=== PATIENT | female | born 1960 | race Caucasian/White ===

== ENCOUNTER → 2018-09-10 09:00 | Outpatient (CLI) | payer OTHER, SELFPAY ==
[2018-09-10 09:39] LABS: ALB/GLOB Ratio 1.1 RATIO (0.9-2.4); AST(SGOT) 14 U/L (15-37); Alanine Aminotransfer ALT/SGPT 19 U/L (13-56); Albumin, Serum 3.7 g/dL (3.2-5.0); Alkaline Phosphatase 63 U/L (45-117); Anion Gap 7 (5-15); BUN 13 mg/dL (7-18); Calcium,Total 8.6 mg/dL (8.5-10.1); Chloride 103 mmol/L (98-107); Cholesterol 216 mg/dL (200); Creatinine, Serum 0.72 mg/dL (0.55-1.02); EST Glomerular Filtration Rate 88 mL/min (>60); Est Glom Filt Rate - Afr Amer 107 mL/min (>60); Globulin 3.3 g/dL (2.2-4.2); Glucose 93 mg/dL (74-106); High Density Lipoprotein 86 mg/dL; Potassium 4.2 mmol/L (3.5-5.1); Sodium Level 140 mmol/L (136-145); Triglycerides 95 mg/dL; Very Low Density Lipoprotein 19 mg/dL (5-40)
== END ==
PROVIDERS: Family Provider Family Medicine; PCP Family Medicine; Visit Provider Family Medicine
DX: I10 Essential (primary) hypertension (principal); E78.00 Pure hypercholesterolemia, unspecified
CPT/HCPCS: 36415; 80053; 80061

== ENCOUNTER → 2018-10-09 15:11 | Outpatient (CLI) | payer OTHER, SELFPAY ==
[2018-09-03 11:22] VITALS: BMI 21.7
--- NOTE | 2018-10-09 15:14 | BI_ITS ---
MAMMOGRAPHY - BILATERAL SCREENING REASON FOR EXAM: Female, 58 years old. Routine annual screening examination. PERTINENT HISTORY: Non-contributory. TECHNIQUE: Digital bilateral breast adiel (3D mammographic acquisition) in the CC and MLO projections. 2-D mediolateral oblique (MLO) and craniocaudad (CC) views of both breasts were obtained. CAD: Full Field Digital Mammography with Computer Added Detection was performed. COMPARISON: Comparison is made with prior outside examination dated September 11, 2017. FINDINGS: Breast Composition: The breasts are extremely dense, which lowers the sensitivity of mammography. There are no dominant masses or suspicious calcifications. No other significant abnormalities are identified. There has been no significant change since the prior study. BI/SCREENING MAMM (CAD), BILAT IMPRESSION: Stable bilateral screening mammogram. Yearly follow-up mammogram recommended. (A) ASSESSMENT CATEGORY: BIRADS Category 1: Negative. A letter regarding these results will be sent to the patient by the facility within 30 days. Approximately 10% of breast cancers are not detected by mammography. A normal mammogram should not delay biopsy of a clinically suspicious abnormality. [id number] Electronically Signed: Hollis Bryan MD at 8:22 EST Tel [phone], Service support ,
== END ==
PROVIDERS: Family Provider Family Medicine; PCP Family Medicine; Referring Provider Family Medicine; Visit Provider Family Medicine
DX: Z12.31 Encounter for screening mammogram for malignant neoplasm of breast (principal)
CPT/HCPCS: 77063; 77067

== ENCOUNTER → 2019-09-16 11:57 | Outpatient (CLI) | payer OTHER, SELFPAY ==
[2019-09-16 11:37] VITALS: BMI 21.7
[2019-09-16 12:46] LABS: ALB/GLOB Ratio 1.3 RATIO (0.9-2.4); AST(SGOT) 15 U/L (15-37); Alanine Aminotransfer ALT/SGPT 19 U/L (13-56); Albumin, Serum 3.9 g/dL (3.2-5.0); Alkaline Phosphatase 64 U/L (45-117); Anion Gap 4 (5-15); BUN 14 mg/dL (7-18); BUN/Creat Ratio 21.5 RATIO (10-20); Calcium,Total 8.6 mg/dL (8.5-10.1); Chloride 107 mmol/L (98-107); Cholesterol 221 mg/dL (200); Creatinine, Serum 0.65 mg/dL (0.55-1.02); EST Glomerular Filtration Rate 99 mL/min (>60); Est Glom Filt Rate - Afr Amer 120 mL/min (>60); Glucose 94 mg/dL (74-106); High Density Lipoprotein 92 mg/dL; Potassium 4.1 mmol/L (3.5-5.1); Protein, Total 6.9 g/dL (6.4-8.2); Sodium Level 140 mmol/L (136-145); Triglycerides 67 mg/dL; Very Low Density Lipoprotein 13 mg/dL (5-40)
== END ==
PROVIDERS: Family Provider Family Medicine; PCP Family Medicine; Visit Provider Family Medicine
DX: I10 Essential (primary) hypertension (principal); E78.00 Pure hypercholesterolemia, unspecified
CPT/HCPCS: 36415; 80053; 80061

== ENCOUNTER → 2019-10-14 10:13 | Outpatient (CLI) | payer OTHER, SELFPAY ==
[2019-09-16 11:37] VITALS: BMI 21.7
--- NOTE | 2019-10-14 10:14 | BI_ITS ---
MAMMOGRAPHY - BILATERAL SCREENING 3-D TOMOSYNTHESIS REASON FOR EXAM: Female, 59 years old. Routine annual screening mammogram. PERTINENT HISTORY: No significant family history. TECHNIQUE: 2-D mammograms and 3-D Tomosynthesis of the breast (s) were performed. CAD was performed. COMPARISON: October 09, 2018 FINDINGS: The breast composition is heterogeneously dense that can obscure small breast masses. Scattered benign calcifications are seen. No dense spiculated masses or suspicious microcalcifications are identified. No architectural distortion is identified. There is no skin thickening or retraction. There has been no significant change since the prior study. BI/SCREEN MAMM (CAD) W/MAME BILAT IMPRESSION: No mammographic signs of malignancy. Routine yearly mammograms recommended. ASSESSMENT CATEGORY: BIRADS Category 2: Benign. A letter regarding these results will be sent to the patient by the facility within 30 days. FOLLOW UP RECOMMENDATION: Yearly follow up mammogram recommended. (A) Approximately 10% of breast cancers are not detected by mammography. A normal mammogram should not delay biopsy of a clinically suspicious abnormality. Electronically Signed: Thanh Clark MD at 11:28 EST , Service support ,
== END ==
PROVIDERS: Family Provider Family Medicine; PCP Family Medicine; Referring Provider Family Medicine; Visit Provider Family Medicine
DX: Z12.31 Encounter for screening mammogram for malignant neoplasm of breast (principal)
CPT/HCPCS: 77063; 77067

== ENCOUNTER → 2020-09-23 16:24 | Outpatient (CLI) | payer OTHER, SELFPAY ==
[2020-09-23 15:51] VITALS: BMI 22.1
[2020-09-23 17:37] LABS: ALB/GLOB Ratio 1.3 RATIO (0.9-2.4); AST(SGOT) 19 U/L (15-37); Alanine Aminotransfer ALT/SGPT 25 U/L (13-56); Alkaline Phosphatase 73 U/L (45-117); Anion Gap 8 (5-15); BUN 16 mg/dL (7-18); BUN/Creat Ratio 26.9 RATIO (10-20); Calcium,Total 8.8 mg/dL (8.5-10.1); Chloride 106 mmol/L (98-107); Cholesterol 220 mg/dL (200); Creatinine, Serum 0.59 mg/dL (0.55-1.02); EST Glomerular Filtration Rate 110 mL/min (>60); Est Glom Filt Rate - Afr Amer 133 mL/min (>60); Glucose 82 mg/dL (74-106); High Density Lipoprotein 99 mg/dL; Potassium 3.8 mmol/L (3.5-5.1); Sodium Level 143 mmol/L (136-145); Triglycerides 139 mg/dL; Very Low Density Lipoprotein 28 mg/dL (5-40)
== END ==
PROVIDERS: PCP Family Medicine; Referring Provider Family Medicine; Visit Provider Family Medicine
DX: I10 Essential (primary) hypertension (principal); E78.00 Pure hypercholesterolemia, unspecified
CPT/HCPCS: 36415; 80053; 80061

== ENCOUNTER → 2020-10-12 09:04 | Outpatient (CLI) | payer OTHER, SELFPAY ==
[2020-09-23 15:51] VITALS: BMI 22.1
--- NOTE | 2020-10-12 09:09 | BD_ITS ---
STUDY: DUAL ENERGY X-RAY ABSORPTIOMETRY / DXA REASON FOR EXAM: Female, 60 years old. Age of shakira 54. Pat is 121# and 62.5 and quot; a loss of .% and quot; per pat. Takes a multi-vit. Exercises moderately. Grandmother has osteo. TECHNIQUE: Bone Mineral Density (BMD) measurements of lumbar spine and bilateral hips were obtained. COMPARISON: None. FINDINGS: Lumbar Spine (L1-L4): g/cm2 (0.930) / T-score (-2.1) / Z-score (-0.9) Findings are suggestive of osteopenia with a high fracture risk. Left Femur Total: g/cm2 (0.787) / T-score (-1.8) / Z-score (-0.9) Left Femoral Neck: g/cm2 (0.768) / T-score (-1.9) / Z-score (-0.7) Right Femur Total: g/cm2 (0.808) / T-score (-1.6) / Z-score (-0.7) Right Femoral Neck: g/cm2 (0.822) / T-score (-1.6) / Z-score (0.4) BD/Dexa Bone Density Study IMPRESSION: The patient is considered osteopenic as outlined below according to World [employer] Organization (WHO) criteria with a high fracture risk. Reference Information: The T-score is the number of standard deviations above or below the standard which is normal for young adults at their peak bone mineral density. The World Health Organization (WHO) interprets the T-scores as follows: Above -1 Normal bone density Between -1 and -2.5 Osteopenia Equal to / or below -2.5 Osteoporosis As a practical clinical guideline, osteopenia may be graded as follows: Mild -1 through -1.5 Moderate -1.6 through -2.0 Severe -2.1 through -2.4 The Z-score is the number of standard deviations above or below age-matched controls. A Z-score of less than -1.5 would be considered abnormal. References: 1. NIH Osteoporosis and Related Bone Diseases www osteo.org 2. International Society for Clinical Densitometry www iscd.org 3. National Osteoporosis Foundation www nof.org Electronically Signed: Hollis Bryan, at 16:16 EST , Service support ,
== END ==
PROVIDERS: PCP Family Medicine; Referring Provider Family Medicine; Visit Provider Family Medicine
DX: M81.0 Age-related osteoporosis without current pathological fracture (principal)
CPT/HCPCS: 77080

== ENCOUNTER → 2020-11-05 10:52 | Outpatient (CLI) | payer OTHER, SELFPAY ==
[2020-09-23 15:51] VITALS: BMI 22.1
--- NOTE | 2020-11-05 10:54 | BI_ITS ---
MAMMOGRAPHY - BILATERAL SCREENING REASON FOR EXAM: Female, 60 years old. Routine annual screening examination. PERTINENT HISTORY: Non-contributory. TECHNIQUE: Digital bilateral breast mame (3D mammographic acquisition) in the CC and MLO projections. 2-D mediolateral oblique (MLO) and craniocaudad (CC) views of both breasts were obtained. CAD: Full Field Digital Mammography with Computer Added Detection was performed. COMPARISON: Comparison is made with prior study dated 10/14/2019 and 10/09/2018. FINDINGS: Breast Composition: The breasts are extremely dense, which lowers the sensitivity of mammography. There are no dominant masses or suspicious calcifications. No other significant abnormalities are identified. There has been no significant change since the prior study. BI/SCREEN MAMM (CAD) W/MAME BILAT IMPRESSION: Stable bilateral screening mammogram. Yearly follow-up mammogram recommended. (A) ASSESSMENT CATEGORY: BIRADS Category 1: Negative. A letter regarding these results will be sent to the patient by the facility within 30 days. Approximately 10% of breast cancers are not detected by mammography. A normal mammogram should not delay biopsy of a clinically suspicious abnormality. [id number] Electronically Signed: Hollis Bryan, at 12:19 EST , Service support ,
== END ==
PROVIDERS: PCP Family Medicine; Referring Provider Family Medicine; Visit Provider Family Medicine
DX: Z12.31 Encounter for screening mammogram for malignant neoplasm of breast (principal)
CPT/HCPCS: 77063; 77067

== ENCOUNTER → 2021-10-20 15:01 | Outpatient (CLI) | payer OTHER, SELFPAY ==
[2021-10-20 17:43] LABS: ALB/GLOB Ratio 1.2 RATIO (0.9-2.4); AST(SGOT) 21 U/L (15-37); Alanine Aminotransfer ALT/SGPT 27 U/L (13-56); Albumin, Serum 3.9 g/dL (3.2-5.0); Alkaline Phosphatase 67 U/L (45-117); Anion Gap 6 (5-15); BUN 13 mg/dL (7-18); BUN/Creat Ratio 20.9 RATIO (10-20); Calcium,Total 8.6 mg/dL (8.5-10.1); Chloride 105 mmol/L (98-107); Cholesterol 251 mg/dL (200); Creatinine, Serum 0.62 mg/dL (0.55-1.02); EST Glomerular Filtration Rate 104 mL/min (>60); Est Glom Filt Rate - Afr Amer 126 mL/min (>60); Globulin 3.2 g/dL (2.2-4.2); Glucose 82 mg/dL (74-106); High Density Lipoprotein 99 mg/dL; Protein, Total 7.1 g/dL (6.4-8.2); Sodium Level 140 mmol/L (136-145); Triglycerides 84 mg/dL; Very Low Density Lipoprotein 17 mg/dL (5-40)
== END ==
PROVIDERS: PCP Family Medicine; Referring Provider Family Medicine; Visit Provider Family Medicine
DX: I10 Essential (primary) hypertension (principal)
CPT/HCPCS: 36415; 80053; 80061

== ENCOUNTER 2021-11-21 13:11 | Outpatient (CLI) | payer OTHER, SELFPAY ==
--- NOTE | 2021-11-21 13:14 | BI_ITS ---
MAMMOGRAPHY - BILATERAL SCREENING REASON FOR EXAM: Female, 61 years old. Routine annual screening examination. PERTINENT HISTORY: Non-contributory. TECHNIQUE: Digital bilateral breast mame (3D mammographic acquisition) in the CC and MLO projections. 2-D mediolateral oblique (MLO) and craniocaudad (CC) views of both breasts were obtained. CAD: Full Field Digital Mammography with Computer Added Detection was performed. COMPARISON: Comparison is made with prior examination dated 11/05/2020 and 10/14/2019. FINDINGS: Breast Composition: The breasts are extremely dense, which lowers the sensitivity of mammography. There are no dominant masses or suspicious calcifications. No other significant abnormalities are identified. There has been no significant change since the prior study. BI/SCRN MAMM (CAD)W/MAME BILAT IMPRESSION: Stable bilateral screening mammogram. Yearly follow-up mammogram recommended. (A) ASSESSMENT CATEGORY: BIRADS Category 1: Negative. A letter regarding these results will be sent to the patient by the facility within 30 days. Approximately 10% of breast cancers are not detected by mammography. A normal mammogram should not delay biopsy of a clinically suspicious abnormality. [id number] Electronically Signed: Hollis Bryan MD at 14:06 EST , Service support ,
== END 2021-11-21 23:59 | disposition short-term general hospital (02) ==
LOC: OPBI 13:12
PROVIDERS: PCP Family Medicine; Visit Provider Family Medicine
DX: Z12.31 Encounter for screening mammogram for malignant neoplasm of breast (principal)
CPT/HCPCS: 77063; 77067

== ENCOUNTER → 2022-08-23 | Outpatient (CLI) | payer OTHER, SELFPAY ==
[2022-08-23 15:36] LABS: Absolute Lymphocyte Count 2.01 X10^3/uL (0.83-4.51); Absolute Neutrophil Count 2.6 X10^3/uL (2.0-7.7); Basophil# 0.05 X10^3/uL; Basophil% 0.9 % (0-1); Eosinophil# 0.16 X10^3/uL; Eosinophils% 2.9 % (0-5); Hematocrit 40.1 % (37-47); Hemoglobin 12.6 g/dL (12.0-15.0); Lymphocyte # 2.01 X10^3/ul (0.83-4.51); Lymphocyte % 36.9 % (19-41); Mean Corp Hgb Conc 31.4 g/dL (32-36); Mean Corpuscular Hgb 29.5 pg (27.0-32.0); Mean Corpuscular Volume 93.9 fL (81-99); Mean Platelet Vol. 10.4 fl (6.2-12.0); Monocyte# 0.63 X10^3/uL; Monocyte% 11.6 % (0-10); NRBC Flagged by Analyzer 0 % (0-5); Neutrophil # 2.58 X10^3/uL (2.7-7.7); Neutrophil % 47.5 % (47-70); Platelet Count 223 K/mm3 (150-450); RBC Distribution Width CV 12.5 % (11.6-14.6); RBC Distribution Width SD 43.1 fl (35.1-43.9); Red Blood Count 4.27 M/mm3 (4.2-5.4); White Blood Count 5.4 K/mm3 (4.4-11.0)
[2022-08-23 16:20] LABS: ALB/GLOB Ratio 1.2 RATIO (0.9-2.4); AST(SGOT) 18 U/L (15-37); Alanine Aminotransfer ALT/SGPT 19 U/L (13-56); Albumin, Serum 3.8 g/dL (3.2-5.0); Alkaline Phosphatase 72 U/L (45-117); Anion Gap 6 (5-15); BUN 13 mg/dL (7-18); BUN/Creat Ratio 19.8 RATIO (10-20); Calcium,Total 8.8 mg/dL (8.5-10.1); Chloride 105 mmol/L (98-107); Cholesterol 246 mg/dL (200); Creatinine, Serum 0.66 mg/dL (0.55-1.02); EST Glomerular Filtration Rate 98 mL/min (>60); Est Glom Filt Rate - Afr Amer 118 mL/min (>60); Globulin 3.1 g/dL (2.2-4.2); Glucose 109 mg/dL (74-106); High Density Lipoprotein 97 mg/dL; Potassium 3.8 mmol/L (3.5-5.1); Protein, Total 6.9 g/dL (6.4-8.2); Sodium Level 141 mmol/L (136-145); Triglycerides 163 mg/dL; Very Low Density Lipoprotein 33 mg/dL (5-40)
== END | disposition home or self-care (01) ==
LOC: BIMLAB 14:39
PROVIDERS: PCP Family Medicine; Referring Provider Family Medicine; Visit Provider Family Medicine
DX: I10 Essential (primary) hypertension (principal); E78.00 Pure hypercholesterolemia, unspecified
CPT/HCPCS: 36415; 80053; 80061; 85025

== ENCOUNTER → 2022-11-23 | Outpatient (CLI) | payer OTHER, SELFPAY ==
--- NOTE | 2022-11-23 09:45 | BI_ITS ---
MAMMOGRAPHY - BILATERAL SCREENING REASON FOR EXAM: Female, 62 years old. Routine annual screening examination. PERTINENT HISTORY: Non-contributory. TECHNIQUE: Digital bilateral breast mame (3D mammographic acquisition) in the CC and MLO projections. 2-D mediolateral oblique (MLO) and craniocaudad (CC) views of both breasts were obtained. CAD: Full Field Digital Mammography with Computer Added Detection was performed. COMPARISON: Comparison is made with prior study dated 11/21/2021 and 11/05/2020. FINDINGS: Breast Composition: The breasts are extremely dense, which lowers the sensitivity of mammography. There are no dominant masses or suspicious calcifications. No other significant abnormalities are identified. There has been no significant change since the prior study. BI/SCRN MAMM (CAD)W/MAME BILAT IMPRESSION: Stable bilateral screening mammogram. Yearly follow-up mammogram recommended. (A) ASSESSMENT CATEGORY: BIRADS Category 1: Negative. A letter regarding these results will be sent to the patient by the facility within 30 days. Approximately 10% of breast cancers are not detected by mammography. A normal mammogram should not delay biopsy of a clinically suspicious abnormality. [id number] Electronically Signed: Hollis Bryan MD at 11:04 EST ,
--- NOTE | 2022-11-23 09:50 | BD_ITS ---
STUDY: DUAL ENERGY X-RAY ABSORPTIOMETRY / DXA REASON FOR EXAM: Female, 62 years old. Osteopenia TECHNIQUE: Bone Mineral Density (BMD) measurements of lumbar spine and bilateral hips were obtained. COMPARISON: Comparison is made with prior study dated 10/12/2020. FINDINGS: Lumbar Spine (L1-L4): g/cm2 (0.765) / T-score (-2.6) / Z-score (-1.1) Findings are suggestive of osteoporosis with a high fracture risk. Left Femur Total: g/cm2 (0.731) / T-score (-1.7) / Z-score (-0.7) Left Femoral Neck: g/cm2 (0.643) / T-score (-1.9) / Z-score (-0.5) Right Femur Total: g/cm2 (0.747) / T-score (-1.6) / Z-score (-0.6) Right Femoral Neck: g/cm2 (0.664) / T-score (-1.7) / Z-score (-0.3) The T-Scores on the most recent prior examination were: Lumbar Spine (L1-L4): There has been worsening of bone density since the previous examination. Left Femur Total: which represents an improvement of 0.6%. Right Femur Total: which represents a worsening of 0.2%. BD/Dexa Bone Density Study IMPRESSION: The patient is considered osteoporotic as outlined below according to World [employer] Organization (WHO) criteria with a high fracture risk. There has been worsening of bone density since the previous examination. Reference Information: The T-score is the number of standard deviations above or below the standard which is normal for young adults at their peak bone mineral density. The World Health Organization (WHO) interprets the T-scores as follows: Above -1 Normal bone density Between -1 and -2.5 Osteopenia Equal to / or below -2.5 Osteoporosis As a practical clinical guideline, osteopenia may be graded as follows: Mild -1 through -1.5 Moderate -1.6 through -2.0 Severe -2.1 through -2.4 The Z-score is the number of standard deviations above or below age-matched controls. A Z-score of less than -1.5 would be considered abnormal. References: 1. NIH Osteoporosis and Related Bone Diseases www osteo.org 2. International Society for Clinical Densitometry www iscd.org 3. National Osteoporosis Foundation www nof.org Electronically Signed: Hollis Bryan MD at 12:55 EST ,
== END | disposition home or self-care (01) ==
PROVIDERS: PCP Family Medicine; Visit Provider Family Medicine
DX: Z12.31 Encounter for screening mammogram for malignant neoplasm of breast (principal); M85.80 Other specified disorders of bone density and structure, unspecified site; M81.0 Age-related osteoporosis without current pathological fracture
CPT/HCPCS: 77063; 77067; 77080

== ENCOUNTER → 2023-08-14 | Outpatient (CLI) | payer OTHER, SELFPAY ==
[2023-08-14 17:13] LABS: ALB/GLOB Ratio 1.2 RATIO (0.9-2.4); AST(SGOT) 20 U/L (15-37); Alanine Aminotransfer ALT/SGPT 24 U/L (13-56); Albumin, Serum 3.7 g/dL (3.2-5.0); Alkaline Phosphatase 67 U/L (45-117); Anion Gap 4 (5-15); BUN 16 mg/dL (7-18); BUN/Creat Ratio 23.8 RATIO (10-20); Calcium,Total 8.7 mg/dL (8.5-10.1); Chloride 109 mmol/L (98-107); Cholesterol 208 mg/dL (200); Creatinine, Serum 0.67 mg/dL (0.55-1.02); EST Glomerular Filtration Rate 94 mL/min (>60); Est Glom Filt Rate - Afr Amer 114 mL/min (>60); Globulin 3.2 g/dL (2.2-4.2); Glucose 97 mg/dL (74-106); High Density Lipoprotein 90 mg/dL; Potassium 3.9 mmol/L (3.5-5.1); Protein, Total 6.9 g/dL (6.4-8.2); Sodium Level 142 mmol/L (136-145); Triglycerides 152 mg/dL; Very Low Density Lipoprotein 30 mg/dL (5-40)
== END | disposition home or self-care (01) ==
LOC: BIMLAB 16:06
PROVIDERS: PCP Family Medicine; Visit Provider Family Medicine
DX: E78.00 Pure hypercholesterolemia, unspecified (principal)
CPT/HCPCS: 36415; 80053; 80061

== ENCOUNTER → 2023-12-04 | Outpatient (CLI) | payer OTHER, SELFPAY ==
--- NOTE | 2023-12-04 09:29 | BI_ITS ---
MAMMOGRAPHY - BILATERAL SCREENING REASON FOR EXAM: Female, 63 years old. Routine annual screening examination. PERTINENT HISTORY: Non-contributory. TECHNIQUE: Digital bilateral breast mame (3D mammographic acquisition) in the CC and MLO projections. 2-D mediolateral oblique (MLO) and craniocaudad (CC) views of both breasts were obtained. CAD: Full Field Digital Mammography with Computer Added Detection was performed. COMPARISON: Comparison is made with prior study dated November 23, 2022 and November 21, 2021. FINDINGS: Breast Composition: The breasts are extremely dense, which lowers the sensitivity of mammography. There are no dominant masses or suspicious calcifications. No other significant abnormalities are identified. There has been no significant change since the prior study. BI/SCRN MAMM (CAD)W/MAME BILAT IMPRESSION: Stable bilateral screening mammogram. Yearly follow-up mammogram recommended. (A) ASSESSMENT CATEGORY: BIRADS Category 1: Negative. A letter regarding these results will be sent to the patient by the facility within 30 days. Approximately 10% of breast cancers are not detected by mammography. A normal mammogram should not delay biopsy of a clinically suspicious abnormality. [id number] Electronically Signed: Hollis Bryan MD at 10:01 EST ,
== END | disposition home or self-care (01) ==
LOC: OPBI 09:29
PROVIDERS: PCP Family Medicine; Referring Provider Family Medicine; Visit Provider Family Medicine
DX: Z12.31 Encounter for screening mammogram for malignant neoplasm of breast (principal)
CPT/HCPCS: 77063; 77067

== ENCOUNTER → 2024-08-27 | Outpatient (CLI) | payer OTHER, SELFPAY ==
[2024-08-27 15:14] LABS: Basophil# 0.04 X10^3/uL; Basophil% 0.8 % (0-1); Eosinophil# 0.15 X10^3/uL; Eosinophils% 3.1 % (0-5); Hemoglobin 13.1 g/dL (12.0-15.0); Lymphocyte % 41.9 % (19-41); Mean Corp Hgb Conc 31.2 g/dL (32-36); Mean Corpuscular Volume 93.1 fL (81-99); Mean Platelet Vol. 10.9 fl (6.2-12.0); Monocyte# 0.56 X10^3/uL; Monocyte% 11.7 % (0-10); NRBC Flagged by Analyzer 0 % (0-5); Neutrophil % 42.1 % (47-70); Platelet Count 227 K/mm3 (150-450); RBC Distribution Width CV 12.7 % (11.6-14.6); RBC Distribution Width SD 43.5 fl (35.1-43.9); Red Blood Count 4.51 M/mm3 (4.2-5.4); White Blood Count 4.8 K/mm3 (4.4-11.0)
[2024-08-27 16:05] LABS: ALB/GLOB Ratio 1.3 RATIO (0.9-2.4); AST(SGOT) 16 U/L (15-37); Alanine Aminotransfer ALT/SGPT 18 U/L (13-56); Alkaline Phosphatase 69 U/L (45-117); Anion Gap 6 (5-15); BUN 13 mg/dL (7-18); BUN/Creat Ratio 19.3 RATIO (10-20); Chloride 108 mmol/L (98-107); Cholesterol 230 mg/dL (200); Creatinine, Serum 0.67 mg/dL (0.55-1.02); EST Glomerular Filtration Rate 94 mL/min (>60); Est Glom Filt Rate - Afr Amer 114 mL/min (>60); Globulin 3.1 g/dL (2.2-4.2); Glucose 97 mg/dL (74-106); High Density Lipoprotein 111 mg/dL; Potassium 4.5 mmol/L (3.5-5.1); Protein, Total 7.1 g/dL (6.4-8.2); Sodium Level 141 mmol/L (136-145); Triglycerides 82 mg/dL; Very Low Density Lipoprotein 16 mg/dL (5-40)
== END | disposition home or self-care (01) ==
LOC: BIMLAB 10:27
PROVIDERS: PCP Family Medicine; Referring Provider Physician Assistant; Visit Provider Physician Assistant
DX: I10 Essential (primary) hypertension (principal); E78.00 Pure hypercholesterolemia, unspecified
CPT/HCPCS: 36415; 80053; 80061; 85025

== ENCOUNTER 2024-10-31 07:55 | Day surgery (SDC) | payer OTHER, SELFPAY ==
[2024-10-31 08:19] VITALS: BP 142/89; PULSE 67; RESP 16; TEMP 36.6; O2SAT 100; BMI 20.1
[2024-10-31 08:45] VITALS: BP 142/89; PULSE 67; RESP 16; TEMP 36.6; O2SAT 100
--- NOTE | 2024-10-31 08:45 | PRE.ANES_ITS ---
ASA Classification* ASA Classification ASA Classification: 2 Assessment & Plan Anesthesia* Anesthesia Assessment Anesthesia Assessment: Discussed sedation and/or anesthesia options, risks, benefits, and alternatives with patient/parents/legal guardian/POA. Questions invited. The patient/parents/legal guardian/POA seems to understand and agrees to proceed with anesthesia plan. Reviewed the physical assessment, medical history, allergy history and patient home medications list prior to surgery/procedure/anesthetic and documented any changes. Performed airway and anesthesia risk assessments. Anesthesia Type Anesthesia Type: MAC Anesthesia Focused Assessment* Temperature: 97.8 F Pulse Rate: 67 Blood Pressure: 142/89 Respiratory Rate: 16 Pulse Ox: 100 Airway Assessment Mouth opens: >3 cm Mallampati Score: II Focused Labs Anesthesia Preop lab: CBC WBC 4.8 K/mm3 (4.4-11.0) 08/27/24 10:30 RBC 4.51 M/mm3 (4.2-5.4) 08/27/24 10:30 Hgb 13.1 g/dL (12.0-15.0) 08/27/24 10:30 Hct 42.0 % (37-47) 08/27/24 10:30 Plt Count 227 K/mm3 (150-450) 08/27/24 10:30 CHEMISTRY Potassium 4.5 mmol/L (3.5-5.1) 08/27/24 10:30 Sodium 141 mmol/L (136-145) 08/27/24 10:30 BUN 13 mg/dL (7-18) 08/27/24 10:30 Creatinine 0.67 mg/dL (0.55-1.02) 08/27/24 10:30 Glucose 97 mg/dL (74-106) 08/27/24 10:30 COAG Pre-Assessment Diagnosis/Proposed Procedure Planned Operative Procedure(s): COLONOSCOPY Anesthesia History 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 When Was Last Pacemaker Check QUESTION #4 FULL TEXT: You/Your Family Experience fever (hyperthermia) with Anesthesia Last Oral Intake Last Oral intake: Last Oral Intake NPO since 22:00 10/31/24 08:19 Meds taken in AM with sips of No 10/31/24 08:19 water? 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 engineer Female Yes 10/28/24 15:26 HX of Motion Sickness No 10/28/24 15:26 HX of N/V After Surgery Yes 10/28/24 15:26 Non-Smoker Yes 10/28/24 15:26 Duration of Surgery greater No 10/28/24 15:26 than 60 minutes Number of Risk Factors 3 10/28/24 15:26 PONV Score Moderate Risk 10/28/24 15:26 Height & Weight Height & Weight: Anesthesia: Height & Weight Height 5 ft 2 in 10/31/24 08:19 Weight: 50 kg 10/31/24 08:19 Body Mass Index (BMI) 20.1 10/31/24 08:19 Respiratory Assessment Respiratory Assessment - rotating equipment engineer: Respiratory Tract Infection Hx - rotating equipment engineer Hx Respiratory Tract Infection No 10/28/24 15:26 STOP Sleep Apnea STOP Sleep Apnea - rotating equipment engineer: STOP Sleep Apnea - rotating equipment engineer Hx Hypertension Yes 10/28/24 15:26 Hx Sleep Apnea No 10/28/24 15:26 CPAP BIPAP Do you snore loudly (louder No 10/28/24 15:26 than talking or can be heard Do you often feel tired/ No 10/28/24 15:26 fatigued/ sleepy during daytime? Has anyone observed you stop No 10/28/24 15:26 breathing during sleep? STOP Results Negative 10/28/24 15:26 QUESTION #5 FULL TEXT : Do you snore loudly (louder than talking or can be heard through closed doors)? 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 Specify any problems Hx of Preganancy in last 3 No 10/28/24 15:26 Months Nurse Filling Out Transfusion EHCADILLAC 10/28/24 15:26 & Questions: Date: 10/28/24 10/28/24 15:26 Time: 15:34 10/28/24 15:26 Patient unable to answer at this time (ie. confused, unrespo /Reproduction History /Reproductive History - rotating equipment engineer: /Reproductive Hx- rotating equipment engineer Hx Now No 10/28/24 15:26 Gestational Age (in weeks): EDC: Hx Hx Para Hx Section SAB No 10/28/24 15:26 PFSH Medical History Post-menopausal Cancer Wears contact lenses Wears glasses Anxiety Bladder disease Non-smoker High cholesterol Hypertension UTI (urinary tract infection) Home Medications ?Medication ?Instructions ?Recorded ?Last Taken ?Type pravastatin 20 mg tablet 20 mg PO DAILY #90 tabs 06/16/24 Unknown Rx lisinopril 20 mg tablet 20 mg PO DAILY #90 tabs 08/14/24 10/30/24 Rx aspirin 81 mg tablet,delayed 81 mg PO QDAY 09/05/24 10/28/24 History release (Adult Low Dose Aspirin) coenzyme Q10 10 mg capsule (Co 10 mg PO QDAY 09/05/24 Unknown History Q-10) Allergy/AdvReac Type Severity Reaction Status Date / Time Sulfa (Sulfonamide Allergy Intermediate Vomiting Verified 10/31/24 08:17 Antibiotics) codeine AdvReac Intermediate Vomiting Verified 10/31/24 08:17 Family History Father , Age 77 Heart disease CVA (cerebral vascular accident) Hypertension Surgical History Hx of colonoscopy History of facial surgery History of Social History household members: spouse current occupational status: employed 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
--- NOTE | 2024-10-31 09:32 | PCM.HP.STD ---
[facility] - General General Date of Admission: 10/31/24 Date of Service: 10/31/24 Chief Complaint: Screening colonoscopy HPI Narrative JR LEDEZMA, is a 64 F who presents for screening colonoscopy. Her last colonoscopy was 10 years ago. She had no polyps at that time. She denies any new GI issues or complaints [facility] Medical History Post-menopausal Cancer Wears contact lenses Wears glasses Anxiety Bladder disease Non-smoker High cholesterol Hypertension UTI (urinary tract infection) Home Medications ?Medication ?Instructions ?Recorded ?Last Taken ?Type pravastatin 20 mg tablet 20 mg PO DAILY #90 tabs 06/16/24 Unknown Rx lisinopril 20 mg tablet 20 mg PO DAILY #90 tabs 08/14/24 10/30/24 Rx aspirin 81 mg tablet,delayed 81 mg PO QDAY 09/05/24 10/28/24 History release (Adult Low Dose Aspirin) coenzyme Q10 10 mg capsule (Co 10 mg PO QDAY 09/05/24 Unknown History Q-10) Allergy/AdvReac Type Severity Reaction Status Date / Time Sulfa (Sulfonamide Allergy Intermediate Vomiting Verified 10/31/24 08:17 Antibiotics) codeine AdvReac Intermediate Vomiting Verified 10/31/24 08:17 Family History Father , Age 77 Heart disease CVA (cerebral vascular accident) Hypertension Surgical History Hx of colonoscopy History of facial surgery History of Social History household members: spouse current occupational status: employed 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 Smoking Status: Never smoker alcohol intake: current alcohol intake frequency: holidays/special occasions only substance use type: does not use what type of physical activity do you participate in: walking, running and weight training frequency: 5-6 times per week Vital Signs Vital Signs Vital Signs: 10/31/24 08:19 10/31/24 08:19 10/31/24 08:45 Temperature 97.8 F 97.8 F Temperature Source Temporal Pulse Rate 67 67 Respiratory Rate 16 16 Respiratory Pattern Normal Blood Pressure 142/89 H 142/89 H Blood Pressure Mean 106 Blood Pressure Source Monitor Blood Pressure Position Semi-Fowlers Blood Pressure Location Right Arm Pulse Ox 100 100 Oxygen Delivery Method Room Air Weight Weight: 110 lb 3.698 oz Body Mass Index (BMI) 20.1 Physical Exam Narrative She is alert and oriented x 3. She is in no acute distress Abdomen is soft, nontender nondistended. Assessment & Plan Assessment/Plan (1) Colon cancer screening: PLAN: Plan The patient is a 64-year-old female in need of a screening colonoscopy. Her last colonoscopy was about 10 years ago and was negative for any polyps. She denies any new GI issues or problems. We reviewed reviewed the details of the planned procedure including the risks benefits and alternatives. She wishes to proceed. This will begin momentarily Charges/Coding Visit Charges Inpatient E&M: 48486 Init Hosp L1
[2024-10-31 10:10] VITALS: BP 107/68; BP 142/89; PULSE 97; RESP 16; TEMP 36.4; O2SAT 99
--- NOTE | 2024-10-31 10:11 | OP.CCLET_ITS ---
10/31/2024 Juan Manuel Turcios Re : Colonoscopy procedure for Chayo Azevedo Dear Dr. Turcios This procedure was performed on Thursday, October 31, 2024. My impressions and recommendations are as follows: Impressions : - The entire examined colon is normal. - No specimens collected. Recommendations : - Discharge patient to home (ambulatory). - High fiber diet. - Repeat colonoscopy in 10 years for screening purposes. - Return to my office PRN. - Continue present medications. My findings are described in the full procedure note, which is enclosed. If I can be of further assistance, please feel free to contact me at . Sincerely, Justin Mary MD 10/31/2024 10:11:15 AM This report has been signed electronically.
--- NOTE | 2024-10-31 10:11 | OP.COLON_ITS ---
Patient Name: Chayo Azevedo Procedure Date: 10/31/2024 9:28 AM Date of : 1960 Age: 64 Procedure: Colonoscopy Indications: Screening for colorectal malignant neoplasm Providers: Justin Mary MD Referring MD: Juan Manuel Turcios Medicines: Monitored Anesthesia Care Patient Profile: Last Colonoscopy: 10 years ago. Complications: No immediate complications. Estimated blood loss: None. Procedure: Pre-Anesthesia Assessment: - Prior to the procedure, a History and Physical was performed, and patient medications and allergies were reviewed. The patient's tolerance of previous anesthesia was also reviewed. The risks and benefits of the procedure and the sedation options and risks were discussed with the patient. All questions were answered, and informed consent was obtained. Prior Anticoagulants: The patient has taken no anticoagulant or antiplatelet agents. ASA Grade Assessment: II - A patient with mild systemic disease. After reviewing the risks and benefits, the patient was deemed in satisfactory condition to undergo the procedure. After I obtained informed consent, the scope was passed under direct vision. Throughout the procedure, the patient's blood pressure, pulse, and oxygen saturations were monitored continuously. The adult colonoscope was introduced through the anus and advanced to the cecum, identified by the appendiceal orifice, ileocecal valve and palpation. The ileocecal valve, appendiceal orifice, and rectum were photographed. The entire colon was well visualized. The colonoscopy was performed without difficulty. The patient tolerated the procedure well. The quality of the bowel preparation was adequate. Moderate Sedation: See the other procedure note for documentation of moderate sedation with intraservice time. Scope In: 9:48:20 AM Scope Withdrawal Time 0 hours 7 minutes 48 seconds Scope Out: 10:06:29 AM Total Procedure Duration Time 0 hours 18 minutes 9 seconds Findings: The perianal and digital rectal examinations were normal. The entire examined colon appeared normal. Impression: - The entire examined colon is normal. - No specimens collected. Recommendation: - Discharge patient to home (ambulatory). - High fiber diet. - Repeat colonoscopy in 10 years for screening purposes. - Return to my office PRN. - Continue present medications. Procedure Code(s): --- Professional --- 12434, Colonoscopy, flexible; diagnostic, including collection of specimen(s) by brushing or washing, when performed (separate procedure) Diagnosis Code(s): --- Professional --- Z12.11, Encounter for screening for malignant neoplasm of colon CPT copyright 2021 [employer]. All rights reserved. The codes documented in this report are preliminary and upon supervisor border department review may be revised to meet current compliance requirements. Justin Mary MD 10/31/2024 10:11:15 AM This report has been signed electronically. Number of Addenda: 0 Note Initiated On: 10/31/2024 9:28 AM
--- NOTE | 2024-10-31 10:14 | PCM.POST.ANE ---
Anesthesia: Postop Eval I Current Vital Signs Temperature: 97.6 F Pulse Rate: 94 Blood Pressure: 107/68 Respiratory Rate: 16 Pulse Ox: 99 Oxygen Delivery Method: Room Air Assessment Airway patent: Yes Spontaneous unlabored respirations: Yes Mental status: Awake nausea: No Vomiting: No Anesthesia Complication: No Fluid Hydration Crystalloid volume administer (ml): 50 Total IV fluid infused: 50 Progress Note Anesthesia document: Postop Eval 1 completed: Yes
[2024-10-31 10:15] VITALS: BP 101/66; BP 107/68; BP 142/89; PULSE 85; PULSE 94; RESP 16; TEMP 36.4; O2SAT 95; O2SAT 99
[2024-10-31 10:20] VITALS: BP 142/89; BP 99/63; PULSE 68; RESP 16; TEMP 36.4; O2SAT 98
--- NOTE | 2024-10-31 11:29 | PCM.POSTANE2 ---
Anesthesia Postop Eval I Sum Postop Eval Completion status Anesthesia document: Postop Eval 1 completed: Yes Anesthesia Postop Eval I Summary Anesthesia Postop Eval I Summary: Anesthesia Postop Eval I: Assessment Summary Airway patent Yes 10/31/24 10:15 [email or web address] Spontaneous unlabored Yes 10/31/24 10:15 [email or web address] respirations Mental status Awake 10/31/24 10:15 [email or web address] nausea No 10/31/24 10:15 [email or web address] Vomiting No 10/31/24 10:15 [email or web address] Anesthesia Postop Eval I: Fluid Summary Crystalloid volume administer 50 10/31/24 10:15 [email or web address] (ml) Colloids volume administered ( ml) Blood Product volume administered (ml) Total IV fluid infused 50 10/31/24 10:15 [email or web address] Anesthesia Postop Eval I: Summary Notes Anesthesia Complication No 10/31/24 10:15 [email or web address] Anesthesia Complication Comment: Post-operative progress note Anesthesia: Postop Eval II Evaluation Mental status: Awake and Calm Pain Level: 0 nausea: No Vomiting: No Complications Anesthesia Complication: No
== END 2024-10-31 10:54 | disposition home or self-care (01) ==
LOC: EN 07:57 → AC 07:59
PROVIDERS: PCP Family Medicine; Referring Provider Family Medicine; Visit Provider Surgery
PROC: 0DJD8ZZ Inspection of Lower Intestinal Tract, Via Natural or Artificial Opening Endoscopic (ICD-10-PCS; CPT 45378; principal; 2024-10-31 08:55)
DX: Z12.11 Encounter for screening for malignant neoplasm of colon (principal); I10 Essential (primary) hypertension; E78.00 Pure hypercholesterolemia, unspecified; Z88.2 Allergy status to sulfonamides; Z79.82 Long term (current) use of aspirin; Z79.899 Other long term (current) drug therapy
CPT/HCPCS: 45378; A4216; J2405

== ENCOUNTER → 2024-12-05 | Outpatient (CLI) | payer OTHER, SELFPAY ==
--- NOTE | 2024-12-05 12:48 | BI_ITS ---
MAMMOGRAPHY - BILATERAL SCREENING REASON FOR EXAM: Female, 64 years old. Routine annual screening examination. PERTINENT HISTORY: Non-contributory. TECHNIQUE: Digital bilateral breast mame (3D mammographic acquisition) in the CC and MLO projections. 2-D mediolateral oblique (MLO) and craniocaudad (CC) views of both breasts were obtained. CAD: Full Field Digital Mammography with Computer Added Detection was performed. COMPARISON: Comparison is made with prior study dated June 03, 2024 and November 23, 2022. FINDINGS: Breast Composition: The breasts are extremely dense, which lowers the sensitivity of mammography. There are no dominant masses or suspicious calcifications. No other significant abnormalities are identified. There has been no significant change since the prior study. BI/SCRN MAMM (CAD)W/MAME BILAT IMPRESSION: Stable bilateral screening mammogram. Yearly follow-up mammogram recommended. (A) ASSESSMENT CATEGORY: BIRADS Category 1: Negative. A letter regarding these results will be sent to the patient by the facility within 30 days. Approximately 10% of breast cancers are not detected by mammography. A normal mammogram should not delay biopsy of a clinically suspicious abnormality. [id number] Electronically Signed: Hollis Bryan MD at 14:00 EST ,
== END | disposition home or self-care (01) ==
LOC: OPBI 12:48
PROVIDERS: PCP Family Medicine; Referring Provider Physician Assistant; Visit Provider Physician Assistant
DX: Z12.31 Encounter for screening mammogram for malignant neoplasm of breast (principal)
CPT/HCPCS: 77063; 77067

== ENCOUNTER → 2025-09-07 | Outpatient (CLI) | payer OTHER, SELFPAY ==
[2025-09-07 10:36] LABS: Hematocrit 39.7 % (37-47); Hemoglobin 12.8 g/dL (12.0-15.0); Immature Granulocytes Count 0.020 X10^3/uL (0.0-0.0); Mean Corp Hgb Conc 32.2 g/dL (32-36); Mean Corpuscular Volume 90.4 fL (81-99); Mean Platelet Vol. 10.3 fl (6.2-12.0); NRBC Flagged by Analyzer 0 % (0-5); Platelet Count 211 K/mm3 (150-450); RBC Distribution Width CV 12.3 % (11.6-14.6); RBC Distribution Width SD 40.7 fl (35.1-43.9); Red Blood Count 4.39 M/mm3 (4.2-5.4); White Blood Count 5.5 K/mm3 (4.4-11.0)
[2025-09-07 10:49] LABS: AST(SGOT) 20 U/L (<=31); Alanine Aminotransfer ALT/SGPT 13 U/L (<=34); Albumin, Serum 4.4 g/dL (3.4-4.8); Alkaline Phosphatase 76 U/L (35-104); Anion Gap 10 (5-15); BUN 9 mg/dL (4-19); BUN/Creat Ratio 15.4 RATIO (10-20); Calcium,Total 9.2 mg/dL (7.6-11.0); Carbon Dioxide 25.9 mmol/L (21.0-32.0); Chloride 103 mmol/L (98-108); Cholesterol 213 mg/dL (<=200); Globulin 2.4 g/dL (2.2-4.2); Glucose 92 mg/dL (70-99); Low Density Lipoprotein Calc. 99 mg/dL; Magnesium 2.0 mg/dL (1.5-2.2); Potassium 4.0 mmol/L (3.3-5.1); Triglycerides 74 mg/dL; Very Low Density Lipoprotein 15 mg/dL (5-40); cholesterol:hdl ratio screen 2.11
== END | disposition home or self-care (01) ==
LOC: MTLAB 08:57
PROVIDERS: PCP Family Medicine; Referring Provider Family Medicine; Visit Provider Family Medicine
DX: Z00.00 Encounter for general adult medical examination without abnormal findings (principal); E78.00 Pure hypercholesterolemia, unspecified; I10 Essential (primary) hypertension; M85.80 Other specified disorders of bone density and structure, unspecified site; Z78.0 Asymptomatic menopausal state
CPT/HCPCS: 36415; 80053; 80061; 83735; 85025